=== PATIENT | female | born 1995 | race African-American/Black ===

== ENCOUNTER 2017-01-25 21:21 | Emergency (ER) | payer SELFPAY ==
[~2017-01-25] VITALS: Ht 160 cm; Wt 94.6 kg
[2017-01-25 21:27] VITALS: TEMP 36.7; Ht 160 cm; Wt 94.6 kg
[2017-01-25] MEDS ORDERED: IBUP-103 PO (21:42)
--- NOTE | 2017-01-25 21:48 | EMERGENCY ROOM VISIT NOTE ---
History First contact with patient: 21:30 Chief Complaint: WOUND INFECTION Stated Complaint: SORES UNDER BREASTS Nursing Triage Summary: pt c/o huge blisters under bilat breast from using paper tape History of Present Illness The patient is a 22 year old female who presents to the Emergency Room via private vehicle accompanied by another female with complaints of "sores under breasts". The patient states that a few months ago, she was diagnosed with molluscum contagiosum. She states that she was using apple cider been her on these areas, and paper tape to hold in place. She states that she use this underneath her breasts, and on her neck. She is also uses other places. She states that she use this on Friday, as well as genital work cream on the regions. This was prescribed by her family doctor. She states that she then went to work out. She then noticed raised sore areas and underneath her breasts and on her neck. She states that this has worsened therefore came in for evaluation today. Her tetanus is up-to-date. Review of Systems A complete 6-point Review of Systems was discussed with the patient, with pertinent positives and negatives listed in the History of Present Illness. All remaining Review of Systems questions can be considered negative unless otherwise specified. Past Medical/Surgical History Molluscum contagiosum. Family History No pertinent. Social History Smoking Status: Never Smoker Alcohol Use: none Marital Status: single Current/Historical Medications Scheduled PRN Ibuprofen Tab (Advil), 200-600 MG PO Q4H PRN for Pain Physical Exam Vital Signs Date Time Temp Pulse Resp B/P (MAP) Pulse Ox O2 Delivery O2 Flow Rate FiO2 01/25/17 21:52 97 16 137/100 97 01/25/17 21:27 36.7 94 18 147/94 98 Room Air Physical Exam VITAL SIGNS - Vital signs and nursing notes were reviewed. Stable. GENERAL -22-year-old female appearing her stated age who is in no acute distress. Communicates well with provider and answers questions appropriately. SKIN - underlying lateral portion of both breasts there is a raised, irritated region that is approximately 4 cm x 8 cm area there is also a small similar region on the left anterior neck. This is consistent with contact dermatitis. HEAD - NC/AT. Medical Decision & Procedures ED Course Full evaluation in room D9. Examination consistent with that of contact dermatitis. Conservative management with [id number] medicine discussed. Is to follow-up with her family doctor. Discharged home in good condition. Medical Decision Patient was seen and evaluated as above. She presents to us today with itchy, and sore region underneath her breasts following paper tape administration. She states that she normally does not use paper tape, and does not believe she has used it much in the past. I suspect she has had a reaction to this, and is experiencing contact dermatitis. Noted some infection. She denies any fevers or chills. Her vital signs are stable. At this time I believe she is stable for outpatient management, and was instructed to use 1% hydrocortisone cream as well as Benadryl. She was instructed on limiting the duration of using this medication as it can thin the skin. She was educated to follow-up with her family doctor. She was educated upon management today's findings. She was educated upon worrisome symptoms which to return, had questions prior discharge , and were discharged home in good condition. In evaluation treatment this patient following differential diagnoses were entertained: Cellulitis, abscess, infection, contact dermatitis, among others. Impression Primary Impression: Contact dermatitis Departure Information Dispostion Home / Self-Care Condition GOOD Referrals Vickie Martinez M.D. (PCP) Patient Instructions My [facility] Additional Instructions You were seen in the emergency department for contact dermatitis, which is the skin irritation underneath the breasts. I recommend using a thin film of hydrocortisone cream on the areas once daily after showering and drying the areas. Please do not do this for more than 7 days. You may use Benadryl, according to the package insert for your itchiness and reaction. Please do not mix this with the other cream. Please dry the areas as much as possible. Please return to emergency department with any new/concerning symptoms.
[2017-01-25 21:52] VITALS: BP 137/100; PULSE 97; O2SAT 97
== END 2017-01-25 21:57 | disposition home or self-care (01) ==
LOC: C.EDB 21:23 → C.EDD 21:57
DX: L25.9 Unspecified contact dermatitis, unspecified cause (principal)